=== PATIENT | female | born 1960 | race Caucasian/White ===

== ENCOUNTER → 2017-02-27 | Outpatient (REF) | payer BC ==
[2017-02-27 12:31] LABS: ALBUMIN 3.6 GM/DL (3.2-5.2); ALBUMIN/GLOBULIN RATIO 0.97 (1.00-1.93); BILIRUBIN,TOTAL 0.4 MG/DL (0.2-1.0); CALCIUM LEVEL 8.7 MG/DL (8.5-10.1); CREATININE FOR GFR 1.05 MG/DL (0.55-1.02); GLOMERULAR FILTRATION RATE 57.3 (>51); POTASSIUM SERUM 3.5 MEQ/L (3.5-5.1); TOTAL PROTEIN 7.3 GM/DL (6.4-8.2)
== END ==
LOC: M SFHCCLAY 07:26
PROVIDERS: ATTEND Nurse Practitioner
DX: I10 Essential (primary) hypertension (principal); Z12.39 Encounter for other screening for malignant neoplasm of breast; E03.9 Hypothyroidism, unspecified

== ENCOUNTER → 2017-09-11 | Outpatient (REF) | payer BC ==
[2017-09-11 18:26] LABS: ALBUMIN 3.8 GM/DL (3.2-5.2); BILIRUBIN,TOTAL 0.4 MG/DL (0.2-1.0); CALCIUM LEVEL 9.1 MG/DL (8.5-10.1); CREATININE FOR GFR 1.35 MG/DL (0.55-1.02); FREE T4 1.34 NG/DL (0.76-1.46); GLOMERULAR FILTRATION RATE 42.9 (>51); POTASSIUM SERUM 3.2 MEQ/L (3.5-5.1); TOTAL PROTEIN 7.6 GM/DL (6.4-8.2)
== END ==
LOC: M SFHCCLAY 11:52
PROVIDERS: ATTEND Nurse Practitioner Family
DX: E03.9 Hypothyroidism, unspecified (principal); I10 Essential (primary) hypertension; E78.2 Mixed hyperlipidemia

== ENCOUNTER → 2018-03-15 | Outpatient (REF) | payer BC | LOC: M SFHCCLAY 08:28 | DX: E78.2 Mixed hyperlipidemia (principal); I10 Essential (primary) hypertension; E03.9 Hypothyroidism, unspecified ==

== ENCOUNTER → 2018-08-02 | Outpatient (REF) | payer BC ==
[2018-08-02 16:31] LABS: ANION GAP 10 MEQ/L (8-16); BLOOD UREA NITROGEN 30 MG/DL (7-18); CALCIUM LEVEL 9.3 MG/DL (8.5-10.1); CARBON DIOXIDE LEVEL 28 MEQ/L (21-32); CHLORIDE LEVEL 103 MEQ/L (98-107); CREATININE FOR GFR 1.15 MG/DL (0.55-1.30); FREE T4 1.45 NG/DL (0.76-1.46); GLOMERULAR FILTRATION RATE 51.4 (>51); GLUCOSE, FASTING 99 MG/DL (70-100); POTASSIUM SERUM 3.8 MEQ/L (3.5-5.1); SODIUM LEVEL 141 MEQ/L (136-145); THYROID STIMULATING HORMONE 0.829 uIU/ML (0.358-3.740)
== END ==
LOC: M SFHCCLAY 08:31
DX: E03.9 Hypothyroidism, unspecified (principal); I10 Essential (primary) hypertension

== ENCOUNTER → 2019-04-21 | Outpatient (REF) | payer BC ==
[2019-04-21 11:46] LABS: ALBUMIN 4.1 GM/DL (3.2-5.2); BILIRUBIN,TOTAL 0.6 MG/DL (0.2-1.0); CALCIUM LEVEL 8.9 MG/DL (8.8-10.2); CHOLESTEROL RISK RATIO 2.946 (<5); CREATININE FOR GFR 1.14 MG/DL (0.55-1.30); FREE T4 1.26 NG/DL (0.76-1.46); GLOMERULAR FILTRATION RATE 51.8 (>45); POTASSIUM SERUM 3.8 MEQ/L (3.5-5.1); THYROID STIMULATING HORMONE 2.39 uIU/ML (0.358-3.740); TOTAL PROTEIN 7.6 GM/DL (6.4-8.2)
== END ==
LOC: M SFHCCLAY 08:57
PROVIDERS: ATTEND Family Medicine
DX: E03.9 Hypothyroidism, unspecified (principal); I10 Essential (primary) hypertension; E78.2 Mixed hyperlipidemia

== ENCOUNTER → 2020-05-31 | Outpatient (REF) | payer BC ==
[2020-05-31 18:02] LABS: CALCIUM LEVEL 9.4 MG/DL (8.8-10.2); CHOLESTEROL RISK RATIO 3.117 (<5); CREATININE FOR GFR 1.21 MG/DL (0.55-1.30); FREE T4 1.19 NG/DL (0.76-1.46); GLOMERULAR FILTRATION RATE 48.2 (>45); POTASSIUM SERUM 3.7 MEQ/L (3.5-5.1); THYROID STIMULATING HORMONE 4.3 uIU/ML (0.358-3.740); URIC ACID 9.7 MG/DL (2.6-6.0)
== END ==
LOC: M LABDRAWC 11:40
PROVIDERS: ATTEND Family Medicine
DX: I11.9 Hypertensive heart disease without heart failure (principal); E03.8 Other specified hypothyroidism; E78.49 Other hyperlipidemia; M10.9 Gout, unspecified

== ENCOUNTER → 2020-11-22 | Outpatient (REF) | payer BC ==
[2020-11-22 13:07] LABS: CALCIUM LEVEL 9.5 MG/DL (8.8-10.2); CREATININE FOR GFR 1.22 MG/DL (0.55-1.30); FREE T4 1.16 NG/DL (0.76-1.46); GLOMERULAR FILTRATION RATE 47.5 (>45); POTASSIUM SERUM 4.5 MEQ/L (3.5-5.1); THYROID STIMULATING HORMONE 3.32 uIU/ML (0.358-3.740)
[2020-11-22 13:35] LABS: HEMOGLOBIN A1c 5.4 %
== END ==
LOC: M SFHCCLAY 07:30
PROVIDERS: ATTEND Family Medicine
DX: E03.9 Hypothyroidism, unspecified (principal); I11.9 Hypertensive heart disease without heart failure; R63.1 Polydipsia

== ENCOUNTER → 2021-01-19 | Outpatient (CLI) | payer BC ==
[~2021-01-19] MED LIST: ATOR40TA75; COLC0.6T47; HYDR-3490; LEVO125T4; LISI10TA22
== END ==
LOC: M LABSMTC 13:03
PROVIDERS: ATTEND Anesthesiology
DX: Z01.818 Encounter for other preprocedural examination (principal); Z20.822 Contact with and (suspected) exposure to COVID-19

== ENCOUNTER 2021-01-24 09:42 | Day surgery (SDC) | payer BC ==
[~2021-01-24] VITALS: Ht 160 cm; Wt 92.5 kg
[~2021-01-24 09:42] MED LIST changes: +NS 1,000 ML IV ONE
[2021-01-24] MEDS ORDERED: LIDOCAINE 2% 100MG/5ML SDV (FOR ANES.) As Ordered ONE (10:59)
[2021-01-24] MEDS ORDERED: propofoL 200 MG/20 ML VIAL As Ordered ONE (10:59)
--- NOTE | 2021-01-24 11:54 | ROOR ---
Patient Name: Miguelina Henson Procedure Date: 01/24/2021 11:32 AM Date of : 1960 Age: 60 Room: [facility] Gender: Female Note Status: Finalized Procedure: Total Colonoscopy to Cecum + ileoscopy Indications: Screening for colorectal malignant neoplasm, Last colonoscopy: 2009 Providers: Ant Regalado MD Referring MD: Araceli DORAN DO Requesting Provider: Medicines: Monitored Anesthesia Care Complications: No immediate complications. Procedure: Pre-Anesthesia Assessment: - The heart rate, respiratory rate, oxygen saturations, blood pressure, adequacy of pulmonary ventilation, and response to care were monitored throughout the procedure. The Colonoscope was introduced through the anus and advanced to the terminal ileum, with identification of the appendiceal orifice and IC valve. The colonoscopy was performed without difficulty. The patient tolerated the procedure well. The quality of the bowel preparation was excellent. Findings: The perianal and digital rectal examinations were normal. Non-bleeding internal hemorrhoids were found during retroflexion. The hemorrhoids were small and Grade I (internal hemorrhoids that do not prolapse). No other significant abnormalities were identified in a careful examination of the remainder of the colon. The terminal ileum appeared normal. The exam was otherwise without abnormality. Impression: - Non-bleeding internal hemorrhoids. - The examined portion of the ileum was normal. - The examination was otherwise normal. - No specimens collected. - The exam was otherwise normal to the cecum. Recommendation: - Patient has a contact number available for emergencies. The signs and symptoms of potential delayed complications were discussed with the patient. Return to normal activities tomorrow. Written discharge instructions were provided to the patient. - High fiber diet. - Continue present medications. - Repeat colonoscopy in 10 years for screening purposes. - Return to referring physician. - The findings and recommendations were discussed with the patient. Procedure Code(s): --- Professional --- 95245, Colonoscopy, flexible; diagnostic, including collection of specimen(s) by brushing or washing, when performed (separate procedure) Diagnosis Code(s): --- Professional --- Z12.11, Encounter for screening for malignant neoplasm of colon K64.0, First degree hemorrhoids CPT copyright 2019 [employer]. All rights reserved. The codes documented in this report are preliminary and upon retanned leather roller review may be revised to meet current compliance requirements. Ant Regalado MD Ant Regalado MD 01/24/2021 11:54:15 AM Electronically signed by Ant Regalado MD Number of Addenda: 0 Note Initiated On: 01/24/2021 11:32 AM Estimated Blood Loss: Estimated blood loss: none.
[2021-01-24 12:25] VITALS: BP 133/71
== END 2021-01-24 12:28 | disposition home or self-care (01) ==
LOC: M OPP 09:42
PROVIDERS: ATTEND Internal Medicine Gastroenterology
DX: Z12.11 Encounter for screening for malignant neoplasm of colon (principal); K64.0 First degree hemorrhoids; I10 Essential (primary) hypertension; E78.00 Pure hypercholesterolemia, unspecified; Z79.899 Other long term (current) drug therapy

== ENCOUNTER → 2021-11-29 | Outpatient (REF) | payer BC ==
[~2021-11-29] MED LIST changes: -NS 1,000 ML IV ONE
[2021-11-29 12:46] LABS: CALCIUM LEVEL 9.1 MG/DL (8.8-10.2); CHOLESTEROL RISK RATIO 3.019 (<5); CREATININE FOR GFR 1.32 MG/DL (0.55-1.30); FREE T4 1.02 NG/DL (0.76-1.46); GLOMERULAR FILTRATION RATE 43.3 (>45); POTASSIUM SERUM 4.8 MEQ/L (3.5-5.1); THYROID STIMULATING HORMONE 5.45 uIU/ML (0.358-3.740); URIC ACID 7.6 MG/DL (2.6-6.0)
== END ==
LOC: M SFHCCLAY 07:12
PROVIDERS: ATTEND Family Medicine
DX: E78.2 Mixed hyperlipidemia (principal); I11.9 Hypertensive heart disease without heart failure; E03.9 Hypothyroidism, unspecified; M1A.00X0 Idiopathic chronic gout, unspecified site, without tophus (tophi)

== ENCOUNTER → 2022-05-11 | Outpatient (REF) | payer BC ==
[2022-05-11 17:53] LABS: HEMOGLOBIN 13.4 g/dl (12.0-15.5); MEAN CORPUSCULAR HEMOGLOBIN 29.3 pg (27.0-33.0); MEAN CORPUSCULAR HGB CONC 32.7 g/dl (32.0-36.5); MEAN CORPUSCULAR VOLUME 89.7 fl (80.0-96.0); PLATELET COUNT, AUTOMATED 241 10^3/uL (150-450); RED BLOOD COUNT 4.57 10^6/uL (4.00-5.40); WHITE BLOOD COUNT 11.3 10^3/uL (4.0-10.0)
[2022-05-11 21:31] LABS: ALBUMIN 3.9 GM/DL (3.2-5.2); BILIRUBIN,TOTAL 0.8 MG/DL (0.2-1.0); CALCIUM LEVEL 9.4 MG/DL (8.8-10.2); CHOLESTEROL RISK RATIO 2.383 (<5); CREATININE FOR GFR 1.17 MG/DL (0.55-1.30); FREE T4 1.7 NG/DL (0.76-1.46); GLOMERULAR FILTRATION RATE 49.7 (>45); POTASSIUM SERUM 4.2 MEQ/L (3.5-5.1); THYROID STIMULATING HORMONE 0.351 uIU/ML (0.358-3.740); TOTAL PROTEIN 7.4 GM/DL (6.4-8.2); URIC ACID 8.2 MG/DL (2.6-6.0)
== END ==
LOC: M SFHCCLAY 10:33
PROVIDERS: ATTEND Nurse Practitioner Family
DX: E78.2 Mixed hyperlipidemia (principal); I11.9 Hypertensive heart disease without heart failure; E03.9 Hypothyroidism, unspecified; M1A.00X0 Idiopathic chronic gout, unspecified site, without tophus (tophi)

== ENCOUNTER → 2022-07-14 | Outpatient (REF) | payer BC ==
[2022-07-14 12:43] LABS: FREE T4 1.18 NG/DL (0.76-1.46); THYROID STIMULATING HORMONE 2.1 uIU/ML (0.358-3.740); URIC ACID 4.5 MG/DL (2.6-6.0)
== END ==
LOC: M SFHCCLAY 07:11
PROVIDERS: ATTEND Nurse Practitioner Family
DX: E03.9 Hypothyroidism, unspecified (principal); M1A.2710 Drug-induced chronic gout, right ankle and foot, without tophus (tophi)

== ENCOUNTER → 2022-11-03 | Outpatient (REF) | payer BC ==
[2022-11-03 11:41] LABS: CALCIUM LEVEL 8.7 MG/DL (8.3-10.6); CHOLESTEROL RISK RATIO 3.16 (<5); CREATININE FOR GFR 1.09 MG/DL (0.55-1.30); FREE T4 1.01 NG/DL (0.89-1.76); GLOMERULAR FILTRATION RATE 53.8 (>45); HDL CHOLESTEROL 46.8 MG/DL (>40); LDL CHOLESTEROL 82.4 MG/DL (<100); POTASSIUM SERUM 4.4 MMOL/L (3.5-5.1); THYROID STIMULATING HORMONE 5.322 uIU/ML (0.55-4.78)
[2022-11-03 11:44] LABS: URIC ACID 5.4 MG/DL (3.1-7.8)
== END ==
LOC: M SFHCCLAY 07:53
PROVIDERS: ATTEND Nurse Practitioner Family
DX: I11.9 Hypertensive heart disease without heart failure (principal); E78.2 Mixed hyperlipidemia; E03.9 Hypothyroidism, unspecified; M1A.00X0 Idiopathic chronic gout, unspecified site, without tophus (tophi)

== ENCOUNTER → 2023-03-28 | Outpatient (REF) | payer BC ==
[2023-03-28 12:36] LABS: CALCIUM LEVEL 9.5 MG/DL (8.3-10.6); CREATININE FOR GFR 1.05 MG/DL (0.55-1.30); GLOMERULAR FILTRATION RATE 56.2 (>45); POTASSIUM SERUM 4.1 MMOL/L (3.5-5.1)
[2023-03-28 12:40] LABS: FREE T4 1.34 NG/DL (0.89-1.76); THYROID STIMULATING HORMONE 0.811 uIU/ML (0.55-4.78)
[2023-03-28 12:45] LABS: URIC ACID 5.5 MG/DL (3.1-7.8)
== END ==
LOC: M SFHCCLAY 07:02
PROVIDERS: ATTEND Nurse Practitioner Family
DX: E03.9 Hypothyroidism, unspecified (principal); R60.0 Localized edema; M1A.00X0 Idiopathic chronic gout, unspecified site, without tophus (tophi)

== ENCOUNTER → 2023-11-02 | Outpatient (REF) | payer BC ==
[2023-11-02 19:12] LABS: ALBUMIN 4.3 G/DL (3.2-5.2); BILIRUBIN,TOTAL 0.7 MG/DL (0.3-1.2); CALCIUM LEVEL 9.8 MG/DL (8.3-10.6); CHOLESTEROL RISK RATIO 4.86 (<5); CREATININE FOR GFR 1.01 MG/DL (0.55-1.30); GLOMERULAR FILTRATION RATE 58.6 (>45); POTASSIUM SERUM 4.4 MMOL/L (3.5-5.1); THYROID STIMULATING HORMONE 9.273 uIU/ML (0.55-4.78); TOTAL PROTEIN 7.6 G/DL (5.7-8.2)
[2023-11-02 19:14] LABS: FREE T4 1.33 NG/DL (0.89-1.76)
== END ==
LOC: M SFHCCLAY 10:13
PROVIDERS: ATTEND Nurse Practitioner Family
DX: E78.2 Mixed hyperlipidemia (principal); I11.9 Hypertensive heart disease without heart failure; M1A.00X0 Idiopathic chronic gout, unspecified site, without tophus (tophi); E03.9 Hypothyroidism, unspecified; E66.01 Morbid (severe) obesity due to excess calories; R60.0 Localized edema

== ENCOUNTER → 2024-05-02 | Outpatient (REF) | payer OTHER ==
[2024-05-02 18:45] LABS: URIC ACID 6.2 MG/DL (3.1-7.8)
[2024-05-02 18:48] LABS: ALBUMIN 4.1 G/DL (3.2-5.2); BILIRUBIN,TOTAL 0.7 MG/DL (0.3-1.2); CALCIUM LEVEL 9.7 MG/DL (8.3-10.6); CHOLESTEROL RISK RATIO 3.57 (<5); CREATININE FOR GFR 1.1 MG/DL (0.55-1.30); GLOMERULAR FILTRATION RATE 53.1 (>45); HDL CHOLESTEROL 44.8 MG/DL (>40); NON-HDL-C 115.2 MG/DL; POTASSIUM SERUM 5.1 MMOL/L (3.5-5.1); TOTAL PROTEIN 7.1 G/DL (5.7-8.2)
[2024-05-02 18:50] LABS: FREE T4 1.31 NG/DL (0.89-1.76); THYROID STIMULATING HORMONE 2.816 uIU/ML (0.55-4.78)
== END ==
LOC: M SFHCCLAY 11:04
PROVIDERS: ATTEND Nurse Practitioner Family
DX: E78.2 Mixed hyperlipidemia (principal); I11.9 Hypertensive heart disease without heart failure; M1A.00X0 Idiopathic chronic gout, unspecified site, without tophus (tophi); E03.9 Hypothyroidism, unspecified; E66.01 Morbid (severe) obesity due to excess calories; R60.0 Localized edema

== ENCOUNTER → 2024-10-28 | Outpatient (REF) | payer MEDICARE ==
[2024-10-28 12:14] LABS: URIC ACID 5.7 MG/DL (3.1-7.8)
[2024-10-28 12:17] LABS: ALBUMIN 3.8 G/DL (3.2-5.2); BILIRUBIN,TOTAL 0.6 MG/DL (0.3-1.2); CALCIUM LEVEL 9.4 MG/DL (8.3-10.6); CHOLESTEROL RISK RATIO 3.37 (<5); CREATININE FOR GFR 1.08 MG/DL (0.55-1.30); FREE T4 1.62 NG/DL (0.89-1.76); HDL CHOLESTEROL 46.2 MG/DL (>40); LDL CHOLESTEROL 86.2 MG/DL (<100); NON-HDL-C 109.8 MG/DL; POTASSIUM SERUM 3.5 MMOL/L (3.5-5.1); THYROID STIMULATING HORMONE 0.471 uIU/ML (0.55-4.78); TOTAL PROTEIN 7.4 G/DL (5.7-8.2)
[2024-10-28 12:41] LABS: HEMOGLOBIN A1c 5.3 % (4.0-6.0)
== END ==
LOC: M SFHCCLAY 08:59
PROVIDERS: ATTEND Nurse Practitioner Family
DX: E78.2 Mixed hyperlipidemia (principal); I11.9 Hypertensive heart disease without heart failure; M1A.00X0 Idiopathic chronic gout, unspecified site, without tophus (tophi); E03.9 Hypothyroidism, unspecified; E66.01 Morbid (severe) obesity due to excess calories; R60.0 Localized edema

== ENCOUNTER → 2024-12-17 | Outpatient (CLI) | payer MEDICARE | LOC: M CARPUL 13:52 | PROVIDERS: ATTEND Nurse Practitioner Family | DX: R94.31 Abnormal electrocardiogram [ECG] [EKG] (principal) ==

== ENCOUNTER → 2025-04-29 | Outpatient (REF) | payer MEDICARE ==
[2025-04-29 18:51] LABS: ALT/SGPT 27.0 U/L (7.0-40); AST/SGOT 25.0 U/L (<34); CALCIUM LEVEL 9.2 MG/DL (8.3-10.6); CARBON DIOXIDE LEVEL 26.0 MMOL/L (20-31); CHLORIDE LEVEL 102.0 MMOL/L (98-107); CHOLESTEROL LEVEL 145.0 MG/DL (<200); CHOLESTEROL RISK RATIO 3.51 (<5); CREATININE FOR GFR 1.32 MG/DL (0.55-1.30); GLOMERULAR FILTRATION RATE 44.5 (>45); LDL CHOLESTEROL 84.0 MG/DL (<100); NON-HDL-C 103.8 MG/DL; POTASSIUM SERUM 4.0 MMOL/L (3.5-5.1); SODIUM LEVEL 141.0 MMOL/L (136-145); TRIGLYCERIDES LEVEL 99.0 MG/DL (<150)
[2025-04-29 18:52] LABS: FREE T4 1.72 NG/DL (0.89-1.76)
== END ==
LOC: M SFHCCLAY 09:48
PROVIDERS: ATTEND Nurse Practitioner Family
DX: E78.2 Mixed hyperlipidemia (principal); I11.9 Hypertensive heart disease without heart failure; M1A.00X0 Idiopathic chronic gout, unspecified site, without tophus (tophi); E03.9 Hypothyroidism, unspecified; E66.01 Morbid (severe) obesity due to excess calories; R60.0 Localized edema

== ENCOUNTER → 2025-05-11 | Outpatient (REF) | payer MEDICARE ==
[2025-05-11 18:08] LABS: CALCIUM LEVEL 9.1 MG/DL (8.3-10.6); CARBON DIOXIDE LEVEL 29.0 MMOL/L (20-31); CHLORIDE LEVEL 106.0 MMOL/L (98-107); CREATININE FOR GFR 1.43 MG/DL (0.55-1.30); GLOMERULAR FILTRATION RATE 40.5 (>45); POTASSIUM SERUM 4.2 MMOL/L (3.5-5.1); SODIUM LEVEL 143.0 MMOL/L (136-145)
== END ==
LOC: M SFHCCLAY 10:02
PROVIDERS: ATTEND Nurse Practitioner Family
DX: N17.9 Acute kidney failure, unspecified (principal)

== ENCOUNTER → 2025-06-11 | Outpatient (REF) | payer MEDICARE ==
[2025-06-11 13:44] LABS: CALCIUM LEVEL 9.3 MG/DL (8.3-10.6); CARBON DIOXIDE LEVEL 28.0 MMOL/L (20-31); CHLORIDE LEVEL 106.0 MMOL/L (98-107); CREATININE FOR GFR 1.29 MG/DL (0.55-1.30); GLOMERULAR FILTRATION RATE 45.8 (>45); POTASSIUM SERUM 4.1 MMOL/L (3.5-5.1); SODIUM LEVEL 145.0 MMOL/L (136-145)
== END ==
LOC: M SFHCCLAY 07:19
PROVIDERS: ATTEND Nurse Practitioner Family
DX: N17.9 Acute kidney failure, unspecified (principal)